=== PATIENT | male | born 1960 | race Caucasian/White ===

== ENCOUNTER 2017-02-24 16:24 | Emergency (ER) | payer OTHER ==
[~2017-02-24] VITALS: Ht 188 cm; Wt 111.1 kg
--- NOTE | 2017-02-24 17:48 | ED NECK/BACK PAIN COMPLAINT ---
History of Present Illness General Chief Complaint: Low Back Pain/Injury Stated Complaint: LOW BACK PAIN, INJURY AT WORK Source: patient Exam Limitations: no limitations Vital Signs & Intake/Output Vital Signs & Intake/Output Vital Signs Date Time Temp Pulse Resp B/P Pulse O2 O2 Flow FiO2 Ox Delivery Rate 02/24 1941 97.8 102 18 140/94 95 Room Air 02/24 1640 97.8 101 20 168/106 96 Room Air Allergies Coded Allergies: No Known Allergies (02/24/17) Triage Note: TRIAGE: PT TO ER C/C LOW BACK PAIN S/P INJURY WHILE AT WORK. 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 yes Onset: Abrupt Duration: THIS MORNING Timing: single episode today Quality/Severity: moderate, severe Location: lumbar spine Method of Injury: twisted Modifying Factors: movement HPI: 56 year old male who presents with chief complaint of low back pain. He was lifting heavy coils with the assist of the grye. He states he moved the grey the wrong way and way jerked the wrong way while holding the coils. He was then jerked the other was while after trying to correct. No head trauma. Denies weakness, numbness, incontinence. Pain is worse with movement, walking. Did not take anything for pain yet. (ANJELICA PEREZ,JENNIE) Reconcile Medications Baclofen 10 MG TABLET 1-2 TAB PO TID PRN muscle strain Clonazepam 0.5 MG TABLET 1 TAB PO 4XDAILY PRN SUPPLEMENT (Reported) Ergocalciferol (Vitamin D2) (Vitamin D2) 50,000 UNIT CAPSULE 1 CAP PO QTHURS SUPPLEMENT (Reported) Ibuprofen 800 MG TABLET 1 TAB PO Q6PRN PRN pain Lamotrigine 25 MG TABLET 1 TAB PO BID MENTAL HEALTH (Reported) Quetiapine Fumarate 25 MG TABLET 1 TAB PO QPM MENTAL HEALTH (Reported) Tramadol HCl (Ultram) 50 MG TABLET 1-2 TAB PO Q6PRN PRN severe pain Trazodone HCl 50 MG TABLET 1 TAB PO QPM MENTAL HEALTH (Reported) Radiation: none Context: lifting, turning/bending Loss of Consciousness: no loss of consciousness Associated Symptoms: lower back pain, muscle spasm (KOKI PEREZ,MAYI) Past History Travel History Traveled to [place] past 21 day No Medical History Any Pertinent Medical History? 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 No (JENNIE DEJESUS MD) Review of Systems Review of Systems Constitutional: Denies: chills, fever. Eyes: Reports: no symptoms. Ears, Nose, Throat, Mouth: Denies: ear pain. Respiratory: Denies: cough, short of breath. Cardiovascular: Denies: chest pain. Gastrointestinal/Abdominal: Reports: no symptoms. Musculoskeletal: Reports: back pain, muscle pain, muscle stiffness. Skin: Reports: no symptoms. Neurological/Psychological: Reports: no symptoms. All Other Systems: Reviewed and Negative (JENNIE DEJESUS MD) Physical Exam Physical Exam General Appearance: well developed/nourished, alert, awake, anxious, mild distress, moderate distress, obese Head: atraumatic Eyes: Bilateral: PERRL, EOMI. Ears, Nose, Throat, Mouth: hearing grossly normal Neck: normal inspection, supple, full range of motion Respiratory: normal breath sounds Cardiovascular: regular rate/rhythm Back: normal inspection, muscle spasm, RIGHT PARALUMBAR SPINAL TENDERNESS Extremities: normal range of motion Neurologic/Psych: awake, alert, oriented x 3, normal mood/affect Skin: intact, normal color, warm/dry (JENNIE DEJESUS MD) Physical Exam Peripheral Pulses: 4+ carotid (R), 4+ carotid (L) Gastrointestinal: normal bowel sounds, soft, non-tender, no organomegaly Sensory: Medial Le: L4R, L4L. Top of Foot: 2: L5R, L5L. Sole of Foot: 2: SIR, BRANDIN. Motor: Deficit L4 Right: No Deficit L4 Left: No Deficit L5 Right: No Deficit L5 Left: No Deficit S1 Right: No Deficit S1 Right: No DTR: Deficit L4 Left: No Deficit L4 Right: No Deficit S1 Left: No Deficit S1 Right: No Patellar: 3: L4 Right, L4 Left. (MAYI TELLES MD) Progress Differential Diagnosis: herniated disc, myofascial strain, T/L spine injury Plan of Care: Orders Procedure Date/time Status XRY-LUMBOSACRAL SPINE 4 VIEWS 02/24 1826 Active Diagnostic Imaging: Viewed by Me: Radiology Read. Discussed w/RAD: Radiology Read. 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
[2017-02-24] MEDS ORDERED: LAMOTRIGINE25 M3 PO (17:56)
[2017-02-24] MEDS ORDERED: TRAZODONE HCL50 M1 PO (17:57)
[2017-02-24] MEDS ORDERED: VITAMIN D250000 UNIT PO (17:57)
[2017-02-24] MEDS ORDERED: QUETIAPINE FUMA25 M1 PO (17:57)
[2017-02-24] MEDS ORDERED: CLONAZEPAM0.5 M2 PO (17:58)
[2017-02-24 19:41] VITALS: BP 140/94
[2017-02-24] MEDS ORDERED: BACLOFEN10 M1 PO (20:31)
[2017-02-24] MEDS ORDERED: ULTRAM50 M1 PO (20:31)
[2017-02-24] MEDS ORDERED: IBUPROFEN800 M1 PO (20:31)
--- NOTE | 2017-02-24 20:33 | RADIOLOGY REPORT ---
EXAMINATION: XR LUMBOSACRAL SPINE CLINICAL INFORMATION: Lower back pain COMPARISON: None TECHNIQUE: 4 views of the lumbosacral spine. FINDINGS: There are 5 lumbar type vertebral bodies. The vertebral body heights appear normal. There may be mild narrowing of the intervertebral disc space at the L1-L2 level, partially visualized. There is anterolisthesis measuring approximately 1.1-1.3 cm at the L5-S1 level. There is narrowing of the intervertebral discs placed at this level in combination with endplate changes including endplate sclerosis. The remainder of the intervertebral disc spaces appear maintained. There is mild facet arthropathy present posterior to the lumbar spine. The visualized portions of the sacrum appear intact. The coccyx is not completely imaged. Dense stool obscures evaluation of the sacrum on the frontal view. IMPRESSION: Grade 2 spondylolisthesis at the L5-S1 level. 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 Other findings as above.
== END 2017-02-24 20:52 ==
LOC: ERH 16:24
DX: M54.5 Low back pain (principal)
CPT/HCPCS: 72110; 96372; J1885

== ENCOUNTER 2017-04-10 23:56 | Emergency (ER) | payer OTHER ==
[~2017-04-10] VITALS: Ht 188 cm; Wt 106.6 kg
[~2017-04-10 23:56] MED LIST: BACLOFEN10 M1 PO; CLONAZEPAM0.5 M2 PO; IBUPROFEN800 M1 PO; LAMOTRIGINE25 M3 PO; QUETIAPINE FUMA25 M1 PO; TRAZODONE HCL50 M1 PO; ULTRAM50 M1 PO; VITAMIN D250000 UNIT PO
[2017-04-11 00:25] LABS: ABSOLUTE BASOPHIL COUNT 0.1 /CUMM (0.0-0.2); ABSOLUTE EOSINOPHIL COUNT 0.1 /CUMM (0.0-0.7); ABSOLUTE GRANULOCYTE CT 5.9 /CUMM (1.4-6.5); ABSOLUTE LYMPH COUNT 2.8 /CUMM (1.2-3.4); ABSOLUTE MONOCYTE COUNT 0.7 /CUMM (0.10-0.60); BASOPHIL % 0.9 % (0.0-2.0); EOSINOPHIL % 1.2 % (0-5); GRANULOCYTE % 61.7 % (42.2-75.2); HEMATOCRIT 46.5 % (42-52); MEAN CORPUSCULAR HGB 31.7 PG (27.0-31.0); MEAN CORPUSCULAR HGB CONC 33.9 G/DL (33.0-37.0); MEAN CORPUSCULAR VOLUME 93.4 FL (80.0-94.0); MEAN PLATELET VOLUME 8.3 FL (7.4-10.4); PLATELET COUNT 170 /CUMM (130-400); RBC DISTRIBUTION WIDTH 12.8 % (11.5-14.5); RED BLOOD CELL CT 4.98 /CUMM (4.70-6.10); WHITE BLOOD CELL COUNT 9.5 /CUMM (4.8-10.8)
--- NOTE | 2017-04-11 01:12 | RADIOLOGY REPORT ---
EXAMINATION: XR PORTABLE CHEST CLINICAL INFORMATION: Cough for 3 days. COMPARISON: None available. TECHNIQUE: Portable frontal view of the chest was obtained. FINDINGS: Symmetric lung inflation. There is no focal consolidation, pleural effusion, or pneumothorax. Cardiac silhouette size is normal. No acute osseous findings. IMPRESSION: No acute pulmonary process. No focal pneumonia.
--- NOTE | 2017-04-11 01:47 | ED CARDIAC/CP/PALPITATIONS ---
History of Present Illness General Chief Complaint: Chest Pain Stated Complaint: "CHEST PAIN FOR A COUPLE DAYS, SOB" Source: patient Exam Limitations: no limitations Vital Signs & Intake/Output Vital Signs & Intake/Output Vital Signs Date Time Temp Pulse Resp B/P B/P Pulse O2 O2 Flow FiO2 Mean Ox Delivery Rate 04/11 0006 96 Room Air Room Air 04/11 0004 96.7 73 16 151/87 96 Room Air Allergies Coded Allergies: No Known Allergies (02/24/17) Reconcile Medications Baclofen 10 MG TABLET 1-2 TAB PO TID PRN muscle strain Clonazepam 0.5 MG TABLET 1 TAB PO 4XDAILY PRN SUPPLEMENT (Reported) Ergocalciferol (Vitamin D2) (Vitamin D2) 50,000 UNIT CAPSULE 1 CAP PO QTHURS SUPPLEMENT (Reported) Ibuprofen 800 MG TABLET 1 TAB PO Q6PRN PRN pain Lamotrigine 25 MG TABLET 1 TAB PO BID MENTAL HEALTH (Reported) Quetiapine Fumarate 25 MG TABLET 1 TAB PO QPM MENTAL HEALTH (Reported) Tramadol HCl (Ultram) 50 MG TABLET 1-2 TAB PO Q6PRN PRN severe pain Trazodone HCl 50 MG TABLET 1 TAB PO QPM MENTAL HEALTH (Reported) Triage Note: 56YO MAL ETO RM 2 FROM TRIAGE W/CO CP X 3 D. STATES "IT HURTS TO BREATHE" Triage Nurses Notes Reviewed? yes HPI: Patient presents for evaluation of a left chest pain that began gradually about 2-3 days ago with associated shortness of breath. Patient states that however he awoke at 10:30 this evening with more severe chest pain and dyspnea. He states that the pain is more or less only present when he takes a deep inspiration and particularly when she takes a deep breath and holds it. He states that he has had very mild episodes of pain even before these past few days. He denies any associated diaphoresis, jaw pain or left arm pain. He likewise denies leg swelling recent travel or abdominal pain. He does state he wheezes on occasion because he is a cigarette smoker. He also drinks 2 beers daily but has not quit. No drug use. He states his mother had a "weak heart". Past History Travel History Traveled to [place] past 21 day No Medical History Any Pertinent Medical History? 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 No Review of Systems Review of Systems Constitutional: Reports: no symptoms. EENTM: Reports: no symptoms. Respiratory: Reports: no symptoms. Cardiovascular: Reports: see HPI. GI: Reports: no symptoms. Genitourinary: Reports: no symptoms. Musculoskeletal: Reports: no symptoms. Skin: Reports: no symptoms. Neurological/Psychological: Reports: no symptoms. Hematologic/Endocrine: Reports: no symptoms. Immunologic/Allergic: Reports: no symptoms. All Other Systems: Reviewed and Negative Physical Exam Physical Exam Cardiovascular: SEE BELOW Comments: Gen.: Well-nourished, well-developed, no acute respiratory distress. Head: Normocephalic, atraumatic. Eyes: Normal inspection bilaterally Ears: Normal inspection bilaterally Nose: Normal inspection Throat/mouth : Moist mucosa Neck: Supple, full range of motion, no goiter Heart: Regular rate and rhythm, no murmurs rubs or gallops Lungs: Clear to auscultation bilaterally with normal air entry Chest: Tenderness over the left chest (questionable as to whether or not this reproduces the pain of the chief complaint) Back: Normal range of motion Abdomen: Soft, nontender, nondistended, normal bowel sounds Extremities: Normal range of motion grossly, equal radial pulses, no cyanosis clubbing or edema, calves nontender Neurologic: Cranial nerves grossly intact, speech is clear Skin: warm and dry Psychiatric: Calm, cooperative, no apparent delusions or hallucinations Core Measures ACS in differential dx? Yes Severe Sepsis Present: No Septic Shock Present: No Progress Differential Diagnosis: AMI, CHF/pulm edema, pericarditis, pneumonia, pneumothorax, pulmonary embolism, unstable angina Plan of Care: Orders Procedure Date/time Status TROPONIN LEVEL 04/11 0010 Complete ETHANOL 04/11 0010 Complete COMPREHENSIVE METABOLIC PANEL 04/11 0010 Complete CBC WITHOUT DIFFERENTIAL 04/11 10 Complete EKG 04/10 2359 Active Laboratory Tests 04/11/17 0015: Anion Gap 13, Estimated GFR > 60, BUN/Creatinine Ratio 16.7, Glucose 110 H, Calcium 8.7, Total Bilirubin 0.5, AST 20, ALT 25, Alkaline Phosphatase 61, Troponin I < 0.01, Total Protein 6.7, Albumin 3.9, Globulin 2.8, Albumin/ Globulin Ratio 1.4, CBC w Diff NO MAN DIFF REQ, RBC 4.98, MCV 93.4, MCH 31.7 H, RDW 12.8, MPV 8.3, Gran % 61.7, Lymphocytes % 28.9, Monocytes % 7.3, Eosinophils % 1.2, Basophils % 0.9, Absolute Granulocytes 5.9, Absolute Lymphocytes 2.8, Absolute Monocytes 0.7 H, Absolute Eosinophils 0.1, Absolute Basophils 0.1, PUBS MCHC 33.9, Serum Alcohol 66.0 Diagnostic Imaging: Discussed w/RAD: Radiology Read. CXR Impression: PATIENT: NAPOLEON GAONA PRESENT AGE : 56 PATIENT ACCOUNT NO: [id number] : 62 LOCATION: [facility] ORDERING PHYSICIAN: LUIS WOODARD DO (TBS) SERVICE DATE: 04/11/17 EXAM TYPE: RAD - XRY-PORTABLE CHEST XRAY EXAMINATION: XR PORTABLE CHEST CLINICAL INFORMATION: Cough for 3 days. COMPARISON: None available. TECHNIQUE: Portable frontal view of the chest was obtained. FINDINGS: Symmetric lung inflation. There is no focal consolidation, pleural effusion, or pneumothorax. Cardiac silhouette size is normal. No acute osseous findings. IMPRESSION: No acute pulmonary process. No focal pneumonia. DICTATED BY: LUIS OLIVER MD DATE/TIME DICTATED:04/11/17106 SENIOR LABORATORY TECHNICIAN:ETHAN DATE/TIME TRANSCRIBED:04/11/17106 CONFIDENTIAL, DO NOT COPY WITHOUT APPROPRIATE AUTHORIZATION. <Electronically signed in Other Vendor System> SIGNED BY: LUIS OLIVER MD 04/11/17 0112 Initial ED EKG: NSR, rate (83), no ST T wave changes Comments: 04/11/2017 2:06:14 AM I have updated Napoleon on his test results. I have recommended a repeat EKG and troponin given his age and cardiac risk factors. I 've advised him that a single EKG and troponin cannot rule out heart attack. He states he does not want to wait for the repeat testing and feels comfortable going home. He states he has no chest pain currently. Departure Departure Disposition: LEFT AGAINST MEDICAL ADVICE Condition: Stable Clinical Impression Primary Impression: Chest pain Qualifiers: Chest pain type: unspecified Qualified Code: R07.9 - Chest pain, unspecified Referrals: UNKNOWN (PCP) Additional Instructions: Please follow up with the mica plate layer listed as soon as possible for reevaluation of your chest pain. Please notify your primary care doctor of this emergency department visit and treatment plan. Rest, no exertion or heavy lifting. Try to quit smoking. You are leaving AGAINST MEDICAL ADVICE (YOU should've stayed for a repeat EKG and troponin to be more certain that this is not related to your heart). Return if any concerns or sudden worsening. Please note that there might be incidental findings in your evaluation that are unrelated to the current emergency department visit. Please notify your primary care doctor about this emergency department visit in order to obtain and review all of the testing performed so that these incidental findings can be monitored as needed. If you had an x-ray performed, please understand that some fractures may not be seen on the initial set of x-rays. If your symptoms persist you might need a repeat set of x-rays to check for such a fracture. If you had a laceration evaluated, please understand that foreign bodies such as glass or wood may not be visible to the naked eye or on plain x-rays. If the wound becomes red, swollen, increasingly more painful or if there is any drainage from the wound, please have it reevaluated by a physician for the possibility of a retained foreign body. Thank you for choosing the [facility] Emergency Department for your care. It was a pleasure to serve you today. Luis Mckeon M.D. [facility] Departure Forms: Customer Survey General Discharge Information Critical Care Note Critical Care Note Critical Care Time: non-applicable
[2017-04-11 02:11] VITALS: BP 148/82
== END 2017-04-11 02:14 | disposition left against medical advice (07) ==
LOC: ERH 23:56
PROVIDERS: Emergency Medicine
DX: R07.9 Chest pain, unspecified (principal); R06.02 Shortness of breath
CPT/HCPCS: 93005; 93010; G0480